=== PATIENT | female | born 1970 | race Caucasian/White ===

== ENCOUNTER 2024-01-08 13:45 | Emergency (ER) | payer OTHER ==
[2024-01-08 14:35] LABS: #Basophils 0.1 thou/uL (0.0-0.2); #Eosinphils 0.1 thou/uL (0.0-0.7); #Lymphocytes 2.1 thou/uL (1.20-3.40); #Monocytes 0.5 thou/uL (0.11-0.59); #Neutrophils 6.4 thou/uL (1.40-6.50); %Basophils 0.8 % (0.0-1.0); %Eosinophils 0.8 % (0.0-10.0); %Lymphocytes 23.2 % (21.0-51.0); %Monocytes 5.1 % (0.0-10.0); %Neutrophils 70.2 % (42.0-75.0); Hematocrit 44.9 % (36.0-47.0); Hemoglobin 15.3 g/dL (12.0-16.0); Mean Corpuscular Hemoglobin 28.7 pg (27.0-31.0); Mean Corpuscular Volume 84.2 fl (78.0-98.0); Mean Platelet Volume 8.4 fL (7.4-10.4); Platelet Count 371 10x3/uL (130-400); RBC Distribution Width 10.2 % (11.5-14.5); Red Blood Cell (RBC) Count 5.33 mill/uL (4.20-5.40); White Blood Cell (WBC) Count 9.2 10x3/uL (4.8-10.8)
[2024-01-08 14:50] LABS: ALT (SGPT) 66 U/L (8-55); AST (SGOT) 35 U/L (5-34); Albumin 4.9 g/dL (3.5-5.0); Alkaline Phosphatase 82 U/L (40-110); Anion Gap 28 mmol/L (10-20); BUN (Urea Nitrogen) 99 mg/dL (9.8-20.1); Bilirubin, Total 1.1 mg/dL (0.2-1.2); Calc. Creatinine Clearance 0 mL/min (70-130); Calcium 10.7 mg/dL (7.8-10.44); Carbon Dioxide 16 mmol/L (22-29); Chloride 87 mmol/L (98-107); Estimated GFR 11; Glucose 117 mg/dL (70-105); Potassium 4.8 mmol/L (3.5-5.1); Protein, Total 8.9 g/dL (6.0-8.3); Sodium 126 mmol/L (136-145)
[2024-01-08 15:09] LABS: Bilirubin Negative (Negative); Blood, Urine Small (Negative); Clarity Clear (Clear); Glucose, Urine (Dipstick) Negative (Negative); Ketone, Urine Negative (Negative); Leukocyte Trace (Negative); Nitrite Negative (Negative); Protein, Urine (Dipstick) 100 mg/dL (Neg-Trace); Specific Gravity, Urine 1.015 (1.005-1.030); Urobilinogen 0.2 mg/dL (Less than 2)
[2024-01-08] MEDS ORDERED: Sodium Chloride 0.9% 2,000 ML ONE (15:21)
[2024-01-08] MEDS ORDERED: Ondansetron PF 4 MG/2 ML Vial ONE ×2 (15:23→18:49)
[2024-01-08 15:24] LABS: CAUTI Indications for Culture Dysuria,urgency,freq
[2024-01-08 15:25] LABS: Renal Epithelial 0-3 HPF (None Seen); Squamous Epithelial 0-3 HPF (0-3); Transitional Epithelial 0-3 HPF (None Seen)
[2024-01-08 15:27] LABS: Bacteria/HPF 2+ HPF (None Seen)
[2024-01-08 15:28] LABS: Urine Culture Reflex Yes Yes
== END 2024-01-08 19:29 | disposition short-term general hospital (02) ==
LOC: NAV ERS 13:45 → MERGE 13:45 → NAV ERS 19:29
DX: E87.1 Hypo-osmolality and hyponatremia (principal); E86.0 Dehydration; N17.9 Acute kidney failure, unspecified
CPT/HCPCS: 36415; 80053; 81001; 83605; 85025; 87086; 96361; 96374; 96376; J2405; J7030

== ENCOUNTER 2024-01-13 07:05 | Emergency (ER) | payer OTHER ==
[2024-01-13] MEDS ORDERED: Sodium Chloride 0.9% 1,000 ML ONE ×2 (07:22→09:57)
[2024-01-13 08:01] LABS: #Basophils 0.1 thou/uL (0.0-0.2); #Eosinphils 0.2 thou/uL (0.0-0.7); #Lymphocytes 2.3 thou/uL (1.20-3.40); #Monocytes 0.5 thou/uL (0.11-0.59); #Neutrophils 9.8 thou/uL (1.40-6.50); %Basophils 0.6 % (0.0-1.0); %Eosinophils 1.6 % (0.0-10.0); %Lymphocytes 17.8 % (21.0-51.0); %Neutrophils 75.9 % (42.0-75.0); Hematocrit 46.6 % (36.0-47.0); Hemoglobin 15.5 g/dL (12.0-16.0); Mean Corpuscular HGB CONC 33.3 g/dL (32.0-36.0); Mean Corpuscular Hemoglobin 28.6 pg (27.0-31.0); Mean Corpuscular Volume 86.1 fl (78.0-98.0); Mean Platelet Volume 7.8 fL (7.4-10.4); Platelet Count 397 10x3/uL (130-400); RBC Distribution Width 10.4 % (11.5-14.5); Red Blood Cell (RBC) Count 5.41 mill/uL (4.20-5.40); White Blood Cell (WBC) Count 12.9 10x3/uL (4.8-10.8)
[2024-01-13 09:15] LABS: Bilirubin Negative (Negative); Blood, Urine Small (Negative); Clarity Clear (Clear); Glucose, Urine (Dipstick) Negative (Negative); Ketone, Urine Negative (Negative); Leukocyte Negative (Negative); Nitrite Negative (Negative); Protein, Urine (Dipstick) Trace mg/dL (Neg-Trace); Urobilinogen 0.2 mg/dL (Less than 2); pH, Urine 5.5 (5.0-9.0)
[2024-01-13 09:25] LABS: CAUTI Indications for Culture < 2yrs of age; RBC/HPF None Seen HPF (0-3); Specific Gravity, Urine 1.009 (1.002-1.036); WBC/HPF None Seen HPF (0-3)
[2024-01-13 09:26] LABS: Bacteria/HPF None Seen HPF (None Seen); Squamous Epithelial 0-3 HPF (0-3)
[2024-01-13 09:27] LABS: Urine Culture Reflex Yes Yes
[2024-01-13] MEDS ORDERED: Promethazine HCl 25 MG/ML VIAL ONE (09:57)
[2024-01-13] MEDS ORDERED: Sodium Chloride 0.9% 100 ML ONE (09:57)
[2024-01-13 10:59] LABS: Lipase 725 U/L (8-78)
[2024-01-13 11:06] LABS: ALT (SGPT) 86 U/L (8-55); AST (SGOT) 50 U/L (5-34); Albumin 5.1 g/dL (3.5-5.0); Alkaline Phosphatase 87 U/L (40-110); Anion Gap 23 mmol/L (10-20); BUN (Urea Nitrogen) 65 mg/dL (9.8-20.1); Bilirubin, Total 1.2 mg/dL (0.2-1.2); Calc. Creatinine Clearance 0 mL/min (70-130); Calcium 10.3 mg/dL (7.8-10.44); Carbon Dioxide 13 mmol/L (22-29); Chloride 99 mmol/L (98-107); Estimated GFR 22; Globulin 3.9 g/dL (2.4-3.5); Glucose 142 mg/dL (70-105); Magnesium 1.6 mg/dL (1.6-2.6); Sodium 131 mmol/L (136-145)
== END 2024-01-13 16:00 | disposition short-term general hospital (02) ==
LOC: MERGE 07:05 → NAV ERS 07:05
DX: E86.0 Dehydration (principal); N17.9 Acute kidney failure, unspecified; Z55.6 Problems related to health literacy
CPT/HCPCS: 36415; 80053; 81001; 83605; 83690; 83735; 85025; 87040; 87086; 93005; 96361; 96365; J2550; J7030